=== PATIENT | female | born 1970 | race Two or more races ===

== ENCOUNTER 2022-10-06 01:08 | Emergency (ER) | payer OTHER ==
[~2022-10-06] VITALS: Ht 154.9 cm; Wt 78.0 kg
[2022-10-06 08:57] LABS: BASOPHILS % 0.8 % (0.0-2.0); EOSINOPHILS % 2.4 % (0.0-5.0); HEMATOCRIT. 37.8 % (36.0-48.0); HEMOGLOBIN. 12.7 g/dL (12.0-16.0); LYMPHOCYTES % 34.8 % (20.0-50.0); MEAN CORPUSCULAR HEMOGLOBIN 30.6 pg (28.0-32.0); MEAN CORPUSCULAR VOLUME 90.8 fL (81.0-99.0); MEAN PLATELET VOLUME 9.2 fl (7.4-10.4); MONOCYTES % 6.1 % (2.0-8.0); NEUTROPHILS % 55.9 % (40.0-76.0); PLATELET 226 x1000/uL (130-400); RED BLOOD CELL COUNT 4.16 mill/uL (4.2-5.4); RED CELL DISTRIBUTION WIDTH 13.6 % (11.6-14.6)
[2022-10-06 09:22] LABS: CHLORIDE 106 mEq/L (98-107)
[2022-10-06] MEDS ORDERED: TOPUD PO (09:40)
[2022-10-06 09:55] VITALS: BP 157/79
== END 2022-10-06 10:15 | disposition home or self-care (01) ==
LOC: ER 01:08
DX: R07.89 Other chest pain (principal)
CPT/HCPCS: 36415; 71045; 80053; 84484; 85025; 93005; 99285